=== PATIENT | female | born 1950 | race Caucasian/White ===

== ENCOUNTER 2018-01-05 11:30 | Emergency (ER) | payer MEDICARE, OTHER ==
[~2018-01-05] VITALS: Ht 152.4 cm; Wt 55.8 kg
[2018-01-05] MEDS ORDERED: SODIUM CHLORIDE 0.9% 1,000 ML IV ONE (11:37)
[2018-01-05] MEDS ORDERED: diphenhdrAMINE HCL 50 MG/1 ML VL IV ONE (11:45)
[2018-01-05] MEDS ORDERED: LORazepam 2MG/ML-1ML VIAL IV ONE (11:45)
[2018-01-05 12:12] LABS: Basophils # (auto) 0 uL; Basophils % (auto) 0.2 % (0.0-2.0); Eosinophils # (auto) 0 uL; Eosinophils % (auto) 0.1 % (0.0-7.0); Hematocrit 38.3 % (36.0-46.0); Hemoglobin 13.2 g/dL (12.2-16.2); Lymphocytes # (auto) 1.3 uL; Lymphocytes % (auto) 11.9 % (10.0-50.0); Mean Corpuscular Hemoglobin 30.5 pg (28.0-32.0); Mean Corpuscular Hgb Conc. 34.4 g/dL (32.0-36.0); Mean Corpuscular Volume 88.6 fL (80.0-100.0); Monocytes # (auto) 0.7 uL; Monocytes % (auto) 6.7 % (0.0-12.0); Neutrophils # (auto) 8.5 uL; Neutrophils % (auto) 81.1 % (37.0-80.0); Platelet Count (auto) 467 10^3/uL (140-450); Red Blood Cells 4.33 10^6/uL (4.0-5.20); Red Cell Distribution Width 12.6 % (11.8-14.3); White Blood Cell 10.5 10^3/uL (4.4-10.8)
[2018-01-05 12:29] LABS: Albumin 3.9 g/dL (3.4-5.0); BUN/Creatinine Ratio 27.8; Bilirubin, Total 0.6 mg/dL (0.2-1.0); Calcium 8.2 mg/dL (8.5-10.1); Magnesium 1.7 mg/dL (1.6-2.6); Potassium 3.4 mmol/L (3.5-5.1); Total Protein 7.3 g/dL (6.4-8.2)
[2018-01-05 14:21] LABS: Urine Bacteria MOD /hpf (None Seen); Urine Blood Negative /uL (Negative); Urine Specific Gravity 1.004 (1.001-1.035); Urine WBC 1 /hpf (0 - 5)
[2018-01-05 14:42] VITALS: BP 148/75
== END 2018-01-05 15:52 | disposition home or self-care (01) ==
LOC: EDBD 11:30 → ER 11:30
DX: T78.40XA Allergy, unspecified, initial encounter (principal); K21.9 Gastro-esophageal reflux disease without esophagitis; M79.605 Pain in left leg; M79.604 Pain in right leg; R19.7 Diarrhea, unspecified; Z90.710 Acquired absence of both cervix and uterus; Z90.49 Acquired absence of other specified parts of digestive tract
CPT/HCPCS: 36415; 71045; 80053; 81001; 83735; 85025; 94761; 96361; 96374; 99285; J1200; J2060; 93005